=== PATIENT | female | born 1930 | race Caucasian/White ===

== ENCOUNTER 2016-11-05 19:54 | Emergency (ER) | payer MEDICARE ==
[2016-11-05] MEDS ORDERED: ONDANSETRON HCL 4 MG/2 ML VIAL ONE (20:24)
[2016-11-05 20:26] LABS: BASOPHILS 0.1 % (0.0-2.0); EOSINOPHILS 1.8 % (0.0-6.0); EOSINOPHILS# 0.1 X 10^3uL (0.0-0.4); HEMATOCRIT 41.1 % (36.0-48.0); HEMOGLOBIN 14.4 g/dL (12.0-16.0); LYMPHOCYTES 19.7 % (20.0-40.0); LYMPHOCYTES# 1.4 X 10^3uL (0.8-3.8); MEAN CELL VOLUME 84.8 fL (80.0-100.0); MEAN CORPUS. HGB CONCENTRATION 35.1 g/dL (32.0-36.0); MEAN CORPUSCULAR HEMOGLOBIN 29.8 pg (29.0-35.0); MEAN PLATELET VOLUME 9.1 fL (7.4-10.4); MONOCYTES 8.9 % (2.0-10.0); MONOCYTES# 0.6 X 10^3uL (0.2-1.0); NEUTROPHILS 69.5 % (54.0-75.0); NEUTROPHILS# 5.2 X 10^3uL (2.6-6.7); PLATELET COUNT 228 X 10^3uL (130-440); RED BLOOD COUNT 4.84 X 10^6uL (4.20-6.10); WHITE BLOOD COUNT 7.3 X 10^3uL (3.9-10.7)
--- NOTE | 2016-11-05 20:36 | RADIOLOGY REPORT ---
HISTORY: Syncope. COMPARISON: Chest x-ray August 20, 2011. FINDINGS: 1 view of the chest obtained. There is evidence of underlying COPD. No focal infiltrates or evidence pulmonary edema. No effusion o r pneumothorax. Cardiac silhouette is within normal limits for size. IMPRESSION: COPD. Final Electronic Signature: This report was electronically signed by Everett Marrero MD on 11/05/2016 8:34 PM. [email or web address] /
[2016-11-05 20:39] LABS: BLOOD UREA NITROGEN 33 mg/dL (7-17); CALCIUM 10.7 mg/dL (8.4-10.2); CHLORIDE 99 mmol/L (98-107); GLUCOSE 180 mg/dL (70-100); MAGNESIUM 2.3 mg/dL (1.6-2.3); POTASSIUM 3.7 mmol/L (3.5-5.1); SODIUM 134 mmol/L (137-145)
[2016-11-05 20:50] LABS: TROPONIN I 0.027 ng/mL (0.00-0.034)
[2016-11-05] MEDS ORDERED: CLOPIDOGREL BISULFATE 75 MG TABLET PO ONE (20:58)
[2016-11-05] MEDS ORDERED: HEPARIN SOD PORCINE 5,000 UNITS/ML VIAL ONE (20:58)
--- NOTE | 2016-11-05 21:27 | ER PHYSICIAN DOCUMENTATION ---
Physician Documentation [facility] Name:Veda Hollingsworth Age:85 yrs Sex:Female :1930 Arrival Date:11/05/2016 Time:19:54 BedTrauma-A Private MD:Serjio Hoskins ED, Scott Disposition: 11/05/16 20:36 Transfer ordered to [facility]. Diagnosis are Syncope, Bradycardia. - Reason for transfer: Higher level of care. - Accepting physician is Hospitalist. - Condition is Fair. - Problem is new. - Symptoms are unchanged. COBRA Form completed? Yes Transfer - Mode of Transportation Ambulance HPI: 11/05 20:26 This 85 yrs old Female presents to ER via EMS with complaints of Near Syncope.sc 20:26 The patient has experienced near-syncope. Onset: The symptom(s)/episode began/occurred sc just prior to arrival. Duration: This was a single episode, that lasted 1 minute(s). Context: the episode(s) was witnessed, by family, daughter, occurred at home, occurred while the patient was sitting, Just prior to the episode the patient experienced nausea. Associated injury: The patient did not suffer any apparent associated injury. Associated signs and symptoms: Pertinent positives: nausea, vomiting. Current symptoms: Currently, the patient is not experiencing any symptoms. Historical: - Allergies: PENICILLINS; SULFA (SULFONAMIDES); Zithromax; Adhesive; - Home Meds: 1. Aspirin Oral 2. Ambien Oral 3. cobimetinib 4. vemurafenib oral 5. Prilosec Oral - Tetanus: < 10 years. - Ebola Screening: : Patient denies exposure to infectious person. Patient denies travel to an Ebola-affected area in the 21 days before illness onset. . - Immunization history: Flu Vaccine < 1 year. - Social history: Smoking status: Patient states was never smoker of tobacco. Patient/guardian denies using alcohol. ROS: 20:27 Constitutional: Negative for fever, chills, and weight loss. sc Eyes: Negative for injury, pain, redness, and discharge. ENT: Negative for injury, pain, and discharge. Neck: Negative for injury, pain, and swelling. Respiratory: Negative for shortness of breath, cough, wheezing, and pleuritic chest pain. Back: Negative for injury and pain. MS/Extremity: Negative for injury and deformity. Skin: Negative for injury, rash, and discoloration. 20:27 Neuro: Negative for headache, weakness, numbness, tingling, and seizure. wa 20:27 Constitutional: Positive for fatigue. 20:27 Cardiovascular: Positive for syncope, fatigue. 20:27 Abdomen/GI: Positive for nausea, vomiting, diarrhea. Exam: 20:27 Abdomen/GI: Inspection: abdomen appears normal, Bowel sounds: diminished, Palpation: wa abdomen is soft and non-tender. Head/Face: Normocephalic, atraumatic. Eyes: Pupils equal round and reactive to light, extra-ocular motions intact. Lids and lashes normal. Conjunctiva and sclera are non-icteric and not injected. Cornea within normal limits. Periorbital areas with no swelling, redness, or edema. ENT: Nares patent. No nasal discharge, no septal abnormalities noted. Tympanic membranes are normal and external auditory canals are clear. Oropharynx with no redness, swelling, or masses, exudates, or evidence of obstruction, uvula midline. Mucous membranes moist. Neck: Trachea midline, no thyromegaly or masses palpated, and no cervical lymphadenopathy. Supple, full range of motion without nuchal rigidity, or vertebral point tenderness. No meningismus. 20:27 Chest/axilla: Normal chest wall appearance and motion. Nontender with no deformity. No lesions are appreciated. Respiratory: Lungs have equal breath sounds bilaterally, clear to auscultation and percussion. No rales, rhonchi or wheezes noted. No increased work of breathing, no retractions or nasal flaring. Abdomen/GI: Soft, non-tender, with normal bowel sounds. No distension or tympany. No guarding or rebound. No evidence of tenderness throughout. Back: No spinal tenderness. No costovertebral tenderness. Full range of motion. Skin: Warm, dry with normal turgor. Normal color with no rashes, no lesions, and no evidence of cellulitis. MS/ Extremity: Pulses equal, no cyanosis. Neurovascular intact. Full, normal range of motion, negative Homans's, calves equal bilaterally. 20:27 Neuro: Awake and alert, GCS 15, oriented to person, place, time, and situation. Cranial nerves II-XII grossly intact. Motor strength 5/5 in all extremities. Sensory grossly intact. Cerebellar exam normal. Normal gait. 20:27 Constitutional: The patient appears alert, awake, frail. 20:27 Cardiovascular: Rate: bradycardic, Rhythm: irregularly irregular. Vital Signs: 20:30 BP 154 / 58; Pulse 45; Resp 20; Temp 98(TE); Pulse Ox 94% on 2 lpm NC; Weight 61.23 kg; lb Height 5 ft. (152.40 cm); Pain 0/10; 21:25 BP 160 / 52; Pulse 43; Resp 20; Pain 0/10; lb 20:30 Body Mass Index 26.37 (61.23 kg, 152.40 cm) lb MDM: 20:08 Patient medically screened. wa 20:28 Differential Diagnosis: cardiac arrhythmia, vasovagal episode, ?[place]. Neurological sc re-evaluation: normal neurological exam including cranial nerves, orientation, mentation, motor and sensory exam, cerebellar testing, GCS normal, and normal gait. Data reviewed: vital signs, nurses notes, old medical records, lab test result(s), EKG, radiologic studies, plain films, and as a result, I will *Transfer Patient. ECG:. Physician consultation: Dr. Jackson was called at 20:35, was contacted at 20:35, regarding admission, [facility]. 20:49 Physician consultation:. ED course: tolerated meds, legal practice manager feels sc likely not ACS but second degree block with syncope.. 21:08 EKG attached [facility] [place] 11/05 20:29 Order name: CBC AUTO DIF, MDIF/RMOR IF IND [facility] 11/05 20:48 Interpretation: Normal. wa 11/05 21:04 Order name: DDIMER; Complete Time: 21:14 [facility] 11/05 21:14 Interpretation: Abnormal. wa 11/05 21:08 Order name: BASIC METABOLIC PANEL [facility] 11/05 21:08 Order name: MAGNESIUM [facility] 11/05 21:08 Order name: TROPONIN I [facility] 11/05 20:37 Order name: CHEST; SINGLE [place]IEW [id number]; Complete Time: 20:48 [facility] 11/05 20:48 Interpretation: Normal. wa 11/05 20:10 Order name: 12-lead EKG; Complete Time: 20:14 wa 11/05 20:10 Order name: Iv Saline Lock; Complete Time: 20:14 wa 11/05 20:10 Order name: Place Patient On Monitor; Complete Time: 20:14 wa 11/05 20:10 Order name: Pulse Ox Continuous; Complete Time: 20:15 wa 11/05 20:23 Order name: CALL HELICOPTER; Complete Time: 20:41 wa 11/05 20:23 Order name: Continuous Cardiac Monitoring; Complete Time: 20:41 wa 11/05 20:23 Order name: DEFIB PADS - appropriate for specific helicopter; Complete Time: 21:05 wa 11/05 20:23 Order name: EKG - fax to [phone]; Complete Time: 20:43 wa 11/05 20:23 Order name: IV saline lock X2; Complete Time: 20:41 wa 11/05 20:23 Order name: Oxygen; Complete Time: :43 wa EC:28 Rate is 84 beats/min. Rhythm is irregularly irregular, Sinus bradycardia with Right sc bundle branch block. No Q waves. ST Segment is elevated in leads V2, V3, V5, 1-2mm. Clinical impression: LVH. Interpreted by me. Reviewed by me. Dispensed Medications: 20:00 Drug: Aspirin Chewable Tablet 324 mg; Route: PO; lb 21:03 Follow up: Response: No adverse reaction lb 20:15 Drug: NS 0.9% 500 ml; Route: IV; Rate: bolus; Site: right antecubital; lb 21:25 Follow up: IV Status: Infusing continued upon transfer; IV Intake: 200ml lb 20:43 Drug: heparin 60 units/kg; Route: IVP; Site: left hand; lb 21:02 Follow up: Response: No adverse reaction lb 20:43 Drug: Plavix 75 mg PO once for patent 75 years or over - Plavix 75 mg; Route: PO; lb 21:02 Follow up: Response: No adverse reaction lb 21:09 Not Given (pt denies chest pain): Nitroglycerin 0.4 mg Sublingual every 5 minutes; lb every five minutes if needed x3 Signatures: Eleanor Woodson RN RN [facility] [place] Viral Samuel MD MD wa Kevin, Ana lb
--- NOTE | 2016-11-05 21:27 | ER NURSING DOCUMENTATION ---
Nurse's Notes [facility] Name:Veda Hollingsworth Age:85 yrs Sex:Female :1930 Arrival Date:11/05/2016 Time:19:54 BedTrauma-A Private MD:Serjio Hoskins Diagnosis:Syncope;Bradycardia Presentation: 11/05 20:10 Presenting complaint:. lb 20:10 Acuity: JULIETA 2 lb 20:23 Presenting complaint: EMS states: general weakness today, fell to floor from chair, lb heart rate noted to be bradycardic per ems. pt denies chest pain. Transition of care: Home. Notified ED Physician of Dr. Samuel notified. Care prior to arrival: IV Fluids given by EMS Medication(s) given: Zofran. 20:23 Method Of Arrival: EMS: 410 lb Triage Assessment: 20:30 General: Appears in no apparent distress, Behavior is appropriate for age, pleasant. lb Pain: Denies pain. EENT: No deficits noted. Neuro: No deficits noted. Cardiovascular: Rhythm is sinus bradycardia. Respiratory: Airway is patent Trachea midline Respiratory effort is even, unlabored, Respiratory pattern is regular, symmetrical, Breath sounds are clear bilaterally. GI: No deficits noted. : No deficits noted. Historical: - Allergies: PENICILLINS; SULFA (SULFONAMIDES); Zithromax; Adhesive; - Home Meds: 1. Aspirin Oral 2. Ambien Oral 3. cobimetinib 4. vemurafenib oral 5. Prilosec Oral - Tetanus: < 10 years. - Ebola Screening: : Patient denies exposure to infectious person. Patient denies travel to an Ebola-affected area in the 21 days before illness onset. . - Immunization history: Flu Vaccine < 1 year. - Social history: Smoking status: Patient states was never smoker of tobacco. Patient/guardian denies using alcohol. Screenin:33 Infectious Disease Risk None. Abuse screen: Denies threats or abuse. Denies injuries lb from another. Nutritional screening: No deficits noted. Assessment: 20:32 See Triage Assessment done by same RN. General: Appears in no apparent distress, lb Behavior is appropriate for age, pleasant. Pain: Denies pain. Neuro: No deficits noted. EENT: No deficits noted. Cardiovascular: Rhythm is sinus bradycardia. Respiratory: Airway is patent Trachea midline Respiratory effort is even, unlabored, Respiratory pattern is regular, symmetrical, Breath sounds are clear bilaterally. Vital Signs: 20:30 BP 154 / 58; Pulse 45; Resp 20; Temp 98(TE); Pulse Ox 94% on 2 lpm NC; Weight 61.23 kg; lb Height 5 ft. (152.40 cm); Pain 0/10; 21:25 BP 160 / 52; Pulse 43; Resp 20; Pain 0/10; lb 20:30 Body Mass Index 26.37 (61.23 kg, 152.40 cm) lb ED Course: 19:56 Patient arrived in ED. jt 19:56 Serjio Hoskins is Private Physician. jt 20:08 Viral Samuel MD is Attending Physician. sc 20:10 Ana Brown is Primary Nurse. lb 20:11 Triage completed. lb 20:22 Port Xray Completed. mr 20:[address] Samuel notified. lb 20:33 Inserted peripheral IV: 20 gauge in left hand Maintain field IV. Dressing intact. Site lb clean & dry. 20:33 Valuables Remains with patient Patient has correct armband on for positive lb identification. Placed in gown. Bed in low position. Call light in reach. Side rails up X2. Child being held by parent. nutrition representative on. Pulse ox on. NIBP on. 20:39 EKG done. (by ED staff). Oxygen Oxygen administration via nasal cannula @ 2L/min. lb 21:08 EKG attached sc1 Administered Medications: 20:00 Drug: Aspirin Chewable Tablet 324 mg; Route: PO; lb 21:03 Follow up: Response: No adverse reaction lb 20:15 Drug: NS 0.9% 500 ml; Route: IV; Rate: bolus; Site: right antecubital; lb 21:25 Follow up: IV Status: Infusing continued upon transfer; IV Intake: 200ml lb 20:43 Drug: heparin 60 units/kg; Route: IVP; Site: left hand; lb 21:02 Follow up: Response: No adverse reaction lb 20:43 Drug: Plavix 75 mg PO once for patent 75 years or over - Plavix 75 mg; Route: PO; lb 21:02 Follow up: Response: No adverse reaction lb 21:09 Not Given (pt denies chest pain): Nitroglycerin 0.4 mg Sublingual every 5 minutes; lb every five minutes if needed x3 Intake: 21:25 IV: 200ml; Total: 200ml. lb Outcome: 20:36 ER care complete, transfer ordered by . jordan 21:05 Transferred: Patient will be transferred to: [facility]. Facility lb Acceptance Time: November 05, 2016 at 20:20 Patient's face sheet was faxed to accepting facility. Face Sheet included patient's name, address, age, gender, contact information and insurance information. Patient will be transported by: [facility]. Nurse and Physician Charting and Notes were sent to Accepting Facility. All tests and/or procedures with results, if applicable, were sent to accepting facility. 21:05 Condition: stable 21:25 Report given to Giovana CARLSON at [facility] 21:25 Discharge Assessment: Patient awake, alert and oriented x 3. No cognitive and/or functional deficits noted. Patient verbalized understanding of disposition instructions. 21:25 Instructed on need for transfer 21:27 Patient left the ED. lb Signatures: Eleanor Woodson RN RN [facility] [place] Viral Samuel MD MD ne Viola Plascencia Lynda lb Rivera, Michael mr
== END 2016-11-05 21:27 | disposition short-term general hospital (02) ==
LOC: ER 19:54
DX: R55 Syncope and collapse (principal); R00.1 Bradycardia, unspecified; R11.2 Nausea with vomiting, unspecified; R53.83 Other fatigue; R19.7 Diarrhea, unspecified; I44.1 Atrioventricular block, second degree; I45.10 Unspecified right bundle-branch block; I51.7 Cardiomegaly; R79.1 Abnormal coagulation profile; Z79.82 Long term (current) use of aspirin; Z79.899 Other long term (current) drug therapy; Z99.89 Dependence on other enabling machines and devices; Z99.81 Dependence on supplemental oxygen; Z74.3 Need for continuous supervision
CPT/HCPCS: 71010; 80048; 83735; 84484; 85025; 85379; 93005; 93010; 96361; 96374; 99285; A0420; A0425; A0427; J1644; J2405